=== PATIENT | male | born 1985 | race Caucasian/White ===

== ENCOUNTER 2023-06-25 17:16 | Emergency (ER) | payer SELFPAY ==
[2023-06-25] VITALS (13 sets, daily range): BP systolic 98–121; BP diastolic 47–83; PULSE 82; RESP 18; TEMP 37.2; O2SAT 97–99; BMI 27.8
--- NOTE | 2023-06-25 18:22 | CT_ITS ---
The [address] [address] Patient Name: GRACIELA BASSETT MRN: [id number] date: 1985 Sex: M Assigned Patient Location: ER Current Patient Location: ER Accession/Order Number: [id number] Exam Date: 06/25/2023 19:05 Report Date: 06/25/2023 20:18 At the request of: RUEL HOWELL Procedure: CT facial bones w con Indication: 37 years year old Male referred for abscess Comparisons: CT dated 04-10-2022 Technique: CT Face was performed with IV contrast. Images were reformated in coronal and sagittal planes. Findings: There is no facial bone fracture. Moderate mucosal thickening within the right anterior ethmoid air cells. Mild mucosal thickening within the left frontal sinus and left anterior ethmoid air cells. The muscles of mastication are normal. Abscess versus phlegmon within the soft tissues of the left temporal region measuring 1.8 x 1.4 x 0.8 cm.Soft tissue swelling and skin thickening within the subcutaneous tissues overlying the left temporal region, consistent with cellulitis.Soft tissue swelling around the left eye, consistent with periorbital cellulitis. There are no gross abnormalities revealed within the brain. Captured portions of the temporal bones are normal. Captured portions of the aerodigestive tract are normal within the limits of this examination. Captured portions of the cervical spine are unremarkable. CT/CT facial bones w con Impression: Abscess versus phlegmon within the soft tissues of the left temporal region measuring 1.8 x 1.4 x 0.8 cm. Soft tissue swelling and skin thickening within the subcutaneous tissues overlying the left temporal region, consistent with cellulitis. Soft tissue swelling around the left eye, consistent with left periorbital cellulitis. Moderate mucosal thickening within the right anterior ethmoid air cells. Mild mucosal thickening within the left frontal sinus and left anterior ethmoid air cells. Electronically authenticated by: DIEGO KIMBLE Date: 06/25/2023 20:18
--- NOTE | 2023-06-25 18:28 | ED_ITS ---
HPI - General Adult General Chief complaint: Wound/Laceration Stated complaint: HEAD INJURY W/ POSS INFECTION Time Seen by Provider: 06/25/23 17:34 Source: patient Mode of arrival: walk-in History of Present Illness HPI narrative: Patient is a 37-year-old male who presents to the emergency department for a 7 to 10-day history of swollen scabbed area to the left frontal scalp. He states it started as a pimple-like area that he picked at, drained and states has now gotten much bigger and much more swollen in the face. He reports pain and soreness associated with swelling down into the left orbit and left maxilla. He has had no fevers, visual changes, vomiting. 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 No medications taken prior to arrival. Related Data Previous Rx's Medication Instructions Recorded clindamycin HCl 150 mg capsule 300 mg (2 x 150 mg) PO Q6H 10 days 06/25/23 #80 caps hydrocodone 5 mg-acetaminophen 325 1 tab PO Q6H PRN pain 3 days #12 06/25/23 mg tablet tabs promethazine 25 mg tablet 25 mg PO Q6H PRN nausea and 06/25/23 vomiting #12 tabs Allergies Allergy/AdvReac Type Severity Reaction Status Date / Time No Known Drug Allergies Allergy Verified 06/25/23 17:28 Review of Systems ROS Constitutional Denies: fever or chills Ears, nose, mouth, and throat Denies: throat pain or nasal congestion Cardiovascular Denies: chest pain Respiratory Denies: shortness of breath or cough Gastrointestinal Denies: nausea or vomiting Genitourinary Denies: painful urination Musculoskeletal Denies: back pain Integumentary/Breast Denies: rash Neurological Denies: headache PFSH PFSH Social History Smoking status: Current every day smoker Exam Narrative Exam Narrative: Gen.: Awake, alert, in no distress Head: Normocephalic, 1.5 cm circular scabbed wound to the left frontal scalp above the eyebrow, surrounding erythema and induration noted with no fluctuance. No active drainage. Left upper and lower eyelids are edematous with normal extraocular muscle motion. No palpable abscess or induration of the left maxilla, mild edema noted. ENT: Moist mucous membranes Respiratory: No respiratory distress Extremities: Moves extremities equally Psych: Normal mood and affect Neuro: No focal neuro deficit Skin: Warm, dry, intact Constitutional Vital Signs, click to edit/add: Last Vital Signs Temp 98.9 F 06/25/23 17:28 Pulse 82 06/25/23 17:28 Resp 18 06/25/23 17:28 BP 101/57 06/25/23 21:01 Pulse Ox 99 06/25/23 21:01 O2 Del Method Room Air 06/25/23 17:28 Course Vital Signs Vital signs: Vital Signs Temperature 98.9 F 06/25/23 17:28 Pulse Rate 82 06/25/23 17:28 Respiratory Rate 18 06/25/23 17:28 Blood Pressure 116/80 06/25/23 17:28 Pulse Oximetry 97 06/25/23 17:28 Oxygen Delivery Method Room Air 06/25/23 17:28 Temperature 98.9 F 06/25/23 17:28 Pulse Rate 82 06/25/23 17:28 Respiratory Rate 18 06/25/23 17:28 Blood Pressure 101/57 06/25/23 21:01 Pulse Oximetry 99 06/25/23 21:01 Oxygen Delivery Method Room Air 06/25/23 17:28 Medical Decision Making MDM Narrative Medical decision making narrative: Patient treated with IV clindamycin, medication for pain and nausea. Vital signs are within normal limits, lab studies within normal limits including lactic acid. CT of the facial bones shows a 1.8 cm area of phlegmon versus abscess, this is the area to the scalp that is scabbed and actively draining. I do not feel any fluctuance that I feel comfortable performing an incision and drainage on. Patient will be discharged home on clindamycin, short course of analgesics and Zofran. He is encouraged to continue warm compresses to the area, follow-up with PCP and return to the ER if symptoms change or worsen. CT shows periorbital cellulitis with no evidence of orbital cellulitis and the patient has no visual changes or deficit in extraocular muscle motion in the ER. Medical Records Medical records reviewed: Yes I reviewed the patient's medical records Lab Data Lab results reviewed: Yes I reviewed the patient's lab results Labs: Lab Results 06/25/23 Range/Units 18:49 WBC 10.1 (4.0-11.0) 10^3/uL RBC 4.26 L (4.70-6.10) 10^6/uL Hgb 12.4 L (14.0-18.0) g/dL Hct 38.2 L (42.0-54.0) % MCV 89.7 (80.0-94.0) fL MCH 29.1 (25.9-34.0) pg MCHC 32.5 (29.9-35.2) g/dL RDW 12.4 (11.0-15.0) % Plt Count 226 (150-450) 10^3/uL MPV 10.9 (9.5-13.5) fL Neut % (Auto) 57.5 (43.0-75.0) % Lymph % (Auto) 23.5 (20.5-60.0) % [place] % (Auto) 11.7 (1.7-12.0) % Eos % (Auto) 5.9 (0.9-7.0) % Baso % (Auto) 1.0 (0.2-2.0) % Neut # (Auto) 5.8 (1.4-6.5) 10^3/uL Lymph # (Auto) 2.4 (1.2-3.8) 10^3/uL [place] # (Auto) 1.2 H (0.3-0.8) 10^3/uL Eos # (Auto) 0.6 (0.0-0.7) 10^3/uL Baso # (Auto) 0.1 (0.0-0.1) 10^3/uL Abs Immat Gran (auto) 0.04 H (0.00-0.03) 10^3/uL Imm/Tot Granulo (auto) 0.4 (0.0-0.5) % ESR 43 H (<=15) mm/hr Sodium 138 (136-145) mmol/L Potassium 4.0 (3.5-5.1) mmol/L Chloride 101 (98-107) mmol/L Carbon Dioxide 30.0 (21.0-32.0) mmol/L Anion Gap 11.0 BUN 21.0 H (7.0-18.0) mg/dL Creatinine 0.98 (0.70-1.30) mg/dL Est GFR ( Amer) >60 (>=60) Est GFR (Non-Af Amer) >60 (>=60) BUN/Creatinine Ratio 21.4 Glucose 114 H (74-106) mg/dL Lactate 1.5 (0.4-2.0) mmol/L Calcium 9.1 (8.5-10.1) mg/dL Total Bilirubin 0.4 (0.2-1.0) mg/dL AST 33 (15-37) U/L ALT 81 H (16-63) U/L Alkaline Phosphatase 89 (46-116) U/L C-Reactive Protein 7.66 H (<=0.50) mg/dL Total Protein 7.5 (6.4-8.2) g/dL Albumin 3.2 L (3.4-5.0) g/dL Globulin 4.3 g/dL Albumin/Globulin Ratio 0.[address] facial bones: Attestation: I have reviewed the pertinent imaging results. Radiologist's impression: Procedure: CT facial bones w con Indication: 37 years year old Male referred for abscess Comparisons: CT dated 04-10-2022 Technique: CT Face was performed with IV contrast. Images were reformated in coronal and sagittal planes. Findings: There is no facial bone fracture. Moderate mucosal thickening within the right anterior ethmoid air cells. Mild mucosal thickening within the left frontal sinus and left anterior ethmoid air cells. The muscles of mastication are normal. Abscess versus phlegmon within the soft tissues of the left temporal region measuring 1.8 x 1.4 x 0.8 cm.Soft tissue swelling and skin thickening within the subcutaneous tissues overlying the left temporal region, consistent with cellulitis.Soft tissue swelling around the left eye, consistent with periorbital cellulitis. There are no gross abnormalities revealed within the brain. Captured portions of the temporal bones are normal. Captured portions of the aerodigestive tract are normal within the limits of this examination. Captured portions of the cervical spine are unremarkable. Impression: Abscess versus phlegmon within the soft tissues of the left temporal region measuring 1.8 x 1.4 x 0.8 cm. Soft tissue swelling and skin thickening within the subcutaneous tissues overlying the left temporal region, consistent with cellulitis. Soft tissue swelling around the left eye, consistent with left periorbital cellulitis. Moderate mucosal thickening within the right anterior ethmoid air cells. Mild mucosal thickening within the left frontal sinus and left anterior ethmoid air cells. Electronically authenticated by: DIEGO KIMLBE Date: 06/25/2023 20:18 Discharge Plan Discharge Chief Complaint: Wound/Laceration Clinical Impression: Facial cellulitis Patient Disposition: Home, Self-Care Time of Disposition Decision: 21:10 Condition: Good Prescriptions / Home Meds: New hydrocodone-acetaminophen 5-325 mg tablet 1 tab PO Q6H PRN (Reason: pain) 3 Days Qty: 12 0RF Rx Instructions: DX: L03.211 clindamycin HCl 150 mg capsule 300 mg PO Q6H 10 Days Qty: 80 0RF promethazine 25 mg tablet 25 mg PO Q6H PRN (Reason: nausea and vomiting) Qty: 12 0RF Instructions: Cellulitis (ED) Stand Alone Forms: Portal Instructions Referrals: Physician,Non-Staff, MD [Primary Care Provider] - 1 week Discharge Date/Time: 06/25/23 21:26
[2023-06-25 19:13] LABS: Basophils Absolute Auto 0.1 10^3/uL (0.0-0.1); Eosinophils Absolute Auto 0.6 10^3/uL (0.0-0.7); Eosinophils Percent Auto 5.9 % (0.9-7.0); Hematocrit 38.2 % (42.0-54.0); Hemoglobin 12.4 g/dL (14.0-18.0); Immature Granulocytes Abs Auto 0.04 10^3/uL (0.00-0.03); Immature Granulocytes Pct Auto 0.4 % (0.0-0.5); Lymphocytes Absolute Auto 2.4 10^3/uL (1.2-3.8); Lymphocytes Percent Auto 23.5 % (20.5-60.0); Mean Corpuscular HGB Conc 32.5 g/dL (29.9-35.2); Mean Corpuscular Hemoglobin 29.1 pg (25.9-34.0); Mean Corpuscular Volume 89.7 fL (80.0-94.0); Mean Platelet Volume 10.9 fL (9.5-13.5); Monocytes Absolute Auto 1.2 10^3/uL (0.3-0.8); Monocytes Percent Auto 11.7 % (1.7-12.0); Neutrophils Absolute Auto 5.8 10^3/uL (1.4-6.5); Neutrophils Percent Auto 57.5 % (43.0-75.0); Platelet Count 226 10^3/uL (150-450); Red Blood Count 4.26 10^6/uL (4.70-6.10); Red Cell Distribution Width 12.4 % (11.0-15.0); White Blood Count 10.1 10^3/uL (4.0-11.0)
[2023-06-25] MEDS: ONDANSETRON PF 4 MG/2 ML VIAL IV (19:28)
[2023-06-25] MEDS: OXYCODONE HCL/ACETAMINOPHEN 5MG/325MG 1 TAB PO (19:28)
[2023-06-25] MEDS: CLINDAMYCIN PHOSPHATE/D5W 900 MG/50 ML PIGGYBACK 100 MG IV (19:28)
[2023-06-25] MEDS: KETOROLAC TROMETHAMINE 30 MG/ML VIAL IVP (19:28)
[2023-06-25 19:32] LABS: Erythrocyte Sedimentation Rate 43 mm/hr (<=15)
[2023-06-25 19:34] LABS: Lactate/Lactic Acid 1.5 mmol/L (0.4-2.0)
[2023-06-25 19:43] LABS: Alanine Aminotransferase 81 U/L (16-63); Albumin Globulin Ratio 0.7; Albumin Level 3.2 g/dL (3.4-5.0); Alkaline Phosphatase 89 U/L (46-116); Aspartate Amino Transferase 33 U/L (15-37); BUN Creatinine Ratio 21.4; Bilirubin Total 0.4 mg/dL (0.2-1.0); Calcium 9.1 mg/dL (8.5-10.1); Chloride 101 mmol/L (98-107); Estimated GFR (African America >60 (>=60); Estimated GFR (Non-African Ame >60 (>=60); Globulin 4.3 g/dL; Glucose 114 mg/dL (74-106); Sodium 138 mmol/L (136-145); Total Protein 7.5 g/dL (6.4-8.2)
[2023-06-25 19:53] LABS: C Reactive Protein 7.66 mg/dL (<=0.50)
[2023-06-25] MEDS: CLINDAMYCIN HCL 150 MG CAPSULE 600 MG PO (21:22)
== END 2023-06-25 21:26 | disposition home or self-care (01) ==
PROVIDERS: Physician Assistant; Emergency Provider Emergency Medicine
DX: L03.211 Cellulitis of face (principal); F17.210 Nicotine dependence, cigarettes, uncomplicated
CPT/HCPCS: 36415; 70487; 80053; 83605; 85025; 85652; 86140; 96365; 96375; 99285; Q9967